=== PATIENT | male | born 1995 | race African-American/Black ===

== ENCOUNTER 2024-01-30 17:01 | Emergency (ER) | payer OTHER ==
[~2024-01-30] VITALS: Ht 180.3 cm; Wt 67.0 kg
[2024-01-30 17:13] VITALS: TEMP 98.2; O2SAT 97
[2024-01-30 18:16] LABS: BASOPHILS % 0.4 % (0.0-2.0); DIFFERENTIAL COMMENT 0; EOSINOPHILS % 0.3 % (0.0-5.0); HEMATOCRIT. 47.9 % (42.0-52.0); HEMOGLOBIN. 16.2 g/dL (14.0-18.0); LYMPHOCYTES % 11.9 % (20.0-50.0); MEAN CORPUSCULAR HEMOGLOBIN 34.3 pg (28.0-32.0); MEAN CORPUSCULAR HGB CONC 33.9 g/dL (31.0-37.0); MEAN CORPUSCULAR VOLUME 101.2 fL (80.0-94.0); MEAN PLATELET VOLUME 7.9 fl (7.4-10.4); MONOCYTES % 8.6 % (2.0-8.0); NEUTROPHILS % 78.8 % (40.0-76.0); PLATELET 192 x1000/uL (130-400); RED BLOOD CELL COUNT 4.74 mill/uL (4.7-6.1); RED CELL DISTRIBUTION WIDTH 12.9 % (11.6-14.6); WHITE BLOOD COUNT 8.1 x1000/uL (4.5-11.0)
[2024-01-30 18:23] LABS: CHLORIDE 106 mEq/L (98-107); POTASSIUM 3.4 mEq/L (3.5-5.1); SODIUM 138 mEq/L (136-145)
[2024-01-30 18:24] LABS: CALCIUM 9.2 mg/dL (8.7-10.4); CARBON DIOXIDE 26 mEq/L (21-32)
[2024-01-30 18:29] LABS: CREATININE 0.9 mg/dL (0.6-1.3); GLUCOSE 104 mg/dL (70-105)
[2024-01-30 18:46] LABS: UREA NITROGEN BLOOD < 5 mg/dL (9-23)
[2024-01-30] MEDS: ACETAMINOPHEN 325MG TABLET PO ONE (19:42)
[2024-01-30 21:10] LABS: ALANINE AMINOTRANSFERASE 9 IU/L (10-49); ALBUMIN 4.6 g/dL (3.2-4.8); ASPARTATE AMINOTRANSFERASE 31 IU/L (<34); BILIRUBIN DIRECT 0.2 mg/dL (<=3.0)
[2024-01-30 21:11] LABS: BILIRUBIN TOTAL 0.6 mg/dL (0.1-1.0); PROTEIN TOTAL 7.7 g/dL (6.0-8.3)
[2024-01-30 23:08] VITALS: BP 124/61; PULSE 65; RESP 18; O2SAT 98
== END 2024-01-30 23:08 | disposition home or self-care (01) ==
LOC: ER 17:01
DX: K62.5 Hemorrhage of anus and rectum (principal); F12.10 Cannabis abuse, uncomplicated; R50.9 Fever, unspecified; R11.2 Nausea with vomiting, unspecified
CPT/HCPCS: 36415; 80048; 80076; 85025; 85651; 99283